=== PATIENT | female | born 1995 | race Two or more races ===

== ENCOUNTER 2022-03-01 23:57 | Emergency (ER) | payer OTHER ==
[~2022-03-01] VITALS: Ht 162.6 cm; Wt 45.8 kg
[2022-03-02 02:54] VITALS: BP 113/39
== END 2022-03-02 01:20 | disposition left against medical advice (07) ==
LOC: ER 23:57
DX: J34.0 Abscess, furuncle and carbuncle of nose (principal); Z53.21 Procedure and treatment not carried out due to patient leaving prior to being seen by health care provider